=== PATIENT | female | born 1990 | race Caucasian/White ===

== ENCOUNTER 2020-02-28 07:38 | Emergency (ER) | payer MEDICAID ==
[~2020-02-28] VITALS: Ht 167.6 cm; Wt 72.7 kg
[2020-02-28] MEDS ORDERED: naproxen 500mg tablet PO ONE (08:00)
[2020-02-28 08:26] LABS: BASOPHILS % (AUTO) 0.3 % (0-1); EOSINOPHILS # (AUTO) 0.1 X10'3 (0-0.9); EOSINOPHILS % (AUTO) 0.9 % (0-6); HEMATOCRIT 37.7 % (35.0-45.0); HEMOGLOBIN 12.6 g/dl (12.0-16.0); LYMPHOCYTES # (AUTO) 1.8 X10'3 (1.1-4.8); LYMPHOCYTES % (AUTO) 25.1 % (21-51); MEAN CORPUSCULAR HEMOGLOBIN 29.4 PG (27.0-31.0); MEAN CORPUSCULAR HGB CONC 33.5 g/dL (33.0-36.5); MEAN CORPUSCULAR VOLUME 87.8 FL (78-98); MEAN PLATELET VOLUME 7.4 FL (7.4-10.4); MONOCYTES # (AUTO) 0.5 X10'3 (0-0.9); MONOCYTES % (AUTO) 7.5 % (2-12); NEUTROPHILS # (AUTO) 4.8 X10'3 (1.8-7.7); NEUTROPHILS % (AUTO) 66.2 % (42-75); PLATELET COUNT 365 X10'3 (140-440); RED BLOOD COUNT 4.29 X10'6 (4.20-5.60); RED CELL DISTRIBUTION WIDTH 13.8 % (11.5-14.5); WHITE BLOOD COUNT 7.2 X10'3 (4.5-11.0)
[2020-02-28 08:42] LABS: ALBUMIN 3.7 G/DL (3.4-5.0); ANION GAP 7 (8-16); BLOOD UREA NITROGEN 11 MG/DL (7-18); BUN/CREATININE RATIO 13.8 (6.6-38.0); CALCIUM 9.5 MG/DL (8.5-10.1); CHLORIDE 108 MMOL/L (99-107); GLUCOSE 84 MG/DL (70-104); POTASSIUM 3.8 MMOL/L (3.5-5.1); SODIUM 141 MMOL/L (135-145); TOTAL CARBON DIOXIDE 26.2 MMOL/L (24-32); TROPONIN I < 0.04 NG/ML (0.0-0.05); eGFR 84 ML/MIN
[2020-02-28 09:29] VITALS: BP 96/60
== END 2020-02-28 09:31 | disposition home or self-care (01) ==
LOC: ER 07:38
DX: R07.89 Other chest pain (principal); R11.0 Nausea; R53.1 Weakness; G43.909 Migraine, unspecified, not intractable, without status migrainosus; F41.9 Anxiety disorder, unspecified; F32.9 Major depressive disorder, single episode, unspecified; F17.200 Nicotine dependence, unspecified, uncomplicated; F12.90 Cannabis use, unspecified, uncomplicated; Z88.2 Allergy status to sulfonamides; Z88.8 Allergy status to other drugs, medicaments and biological substances
CPT/HCPCS: 36415; 71045; 80048; 84484; 85025; 93005; 99285

== ENCOUNTER 2021-11-11 22:49 | Emergency (ER) | payer MEDICAID ==
[~2021-11-11] VITALS: Ht 167.6 cm; Wt 72.7 kg
[2021-11-11] MEDS ORDERED: normal saline 1000ML IV soln IVB ONE (23:05)
[2021-11-11] MEDS ORDERED: proCHLORperazine 10 MG/2 ml inj IV ONE (23:05)
--- NOTE | 2021-11-11 23:07 | NUR ---
ULTRA SOUND PAGED AT [id number]
[2021-11-11 23:23] LABS: URINE HCG NEGATIVE (NEG)
[2021-11-11 23:25] LABS: CLARITY,URINE CLEAR (Clear); GLUCOSE, URINE NEGATIVE (Neg); KETONES,URINE NEGATIVE (Neg); LEUKOCYTE ESTERASE ,URINE NEGATIVE (Neg); NITRITES, URINE NEGATIVE (Neg); OCCULT BLOOD,URINE NEGATIVE (Neg); PROTEIN,URINE NEGATIVE (Neg); UROBILINOGEN,URINE 0.2 E.U/dL (0.2-1.0)
[2021-11-11 23:25] LABS: BASOPHILS % (AUTO) 0.4 % (0-1); EOSINOPHILS # (AUTO) 0.2 X10'3 (0-0.9); EOSINOPHILS % (AUTO) 1.4 % (0-6); HEMATOCRIT 35.3 % (35.0-45.0); LYMPHOCYTES # (AUTO) 3.2 X10'3 (1.1-4.8); LYMPHOCYTES % (AUTO) 25.4 % (21-51); MEAN CORPUSCULAR HEMOGLOBIN 29.9 PG (27.0-31.0); MEAN CORPUSCULAR HGB CONC 34.1 g/dL (33.0-36.5); MEAN CORPUSCULAR VOLUME 87.9 FL (78-98); MONOCYTES # (AUTO) 0.9 X10'3 (0-0.9); MONOCYTES % (AUTO) 7.4 % (2-12); NEUTROPHILS # (AUTO) 8.2 X10'3 (1.8-7.7); NEUTROPHILS % (AUTO) 65.4 % (42-75); PLATELET COUNT 405 X10'3 (140-440); RED BLOOD COUNT 4.01 X10'6 (4.20-5.60); RED CELL DISTRIBUTION WIDTH 14.6 % (11.5-14.5); WHITE BLOOD COUNT 12.5 X10'3 (4.5-11.0)
[2021-11-11 23:26] LABS: COLOR,URINE Straw (Yellow); UA COLLECTION TYPE CLN CATCH MIDSTREAM
[2021-11-11 23:29] LABS: URINE AMPHETAMINE SCREEN NEGATIVE (Neg); URINE BARBITUATE SCREEN NEGATIVE (Neg); URINE BENZODIAZEPINES SCREEN NEGATIVE (Neg); URINE CANNABINOID SCREEN NEGATIVE (Neg); URINE COCAINE SCREEN NEGATIVE (Neg); URINE METHADONE SCREEN NEGATIVE (Neg); URINE OPIATE SCREEN NEGATIVE (Neg); URINE PHENCYCLIDINE SCREEN NEGATIVE (Neg)
[2021-11-11] MEDS ORDERED: LORazepam 2 mg/ml vial IV ONE (23:35)
[2021-11-11 23:42] LABS: ALANINE AMINOTRANSFERASE 27 U/L (12-78); ALBUMIN 3.6 G/DL (3.4-5.0); ALKALINE PHOSPHATASE 56 IU/L (46-116); ANION GAP 11 (8-16); ASPARTATE AMINO TRANSFERASE 15 U/L (10-37); BILIRUBIN,TOTAL 0.2 MG/DL (0.1-1.0); BLOOD UREA NITROGEN 10 MG/DL (7-18); BUN/CREATININE RATIO 11.5 (6.6-38.0); CALCIUM 8.6 MG/DL (8.5-10.1); CHLORIDE 105 MMOL/L (99-107); CREATININE 0.87 MG/DL (0.40-0.90); GLUCOSE 101 MG/DL (70-104); LIPASE 107 U/L (73-393); POTASSIUM 3.5 MMOL/L (3.5-5.1); SODIUM 139 MMOL/L (135-145); TOTAL CARBON DIOXIDE 23.4 MMOL/L (24-32); TOTAL PROTEIN 7.3 G/DL (6.4-8.2); eGFR 75 ML/MIN
[2021-11-11 23:52] VITALS: BP 109/70
== END 2021-11-11 23:55 | disposition left against medical advice (07) ==
LOC: ER 22:50
DX: R10.32 Left lower quadrant pain (principal); R11.2 Nausea with vomiting, unspecified; G43.909 Migraine, unspecified, not intractable, without status migrainosus; F31.9 Bipolar disorder, unspecified; Z88.2 Allergy status to sulfonamides; Z79.899 Other long term (current) drug therapy
CPT/HCPCS: 76856; 80053; 80305; 81003; 81025; 83690; 85025; 93976; 96374; 99284; J0780; J7030; 99283

== ENCOUNTER 2024-08-25 22:04 | Emergency (ER) | payer MEDICAID ==
[~2024-08-25 22:04] MED LIST: IBUP-1986 PO
--- NOTE | 2024-08-25 22:14 | Physician Documentation ---
History of Present Illness ~ Chief Complaint: Seizure Stated Complaint: SILENT SZ Time Seen by MD: 00:12 OK to notify your PCP?: Yes Primary Medical Doctor: psychiatric Source: patient Mode of Arrival: POV Exam Limitations: no limitations HPI 33-year-old female presents from home with possible seizures. She states that she has had for in the past 40 minutes prior to arrival which were witnessed by her kids and dad. She says during the episode she is unable to see or hear anything. While she denies any loss of bowel or bladder or biting her tongue. She is not sure how long they last and she is able to recall the event. No history of seizure disorder or taking any seizure medications. Additional note by Tha Mead DO: I took over the care of this patient from previous physician. I reviewed any previous notes available, obtain my own history, review of systems and physical examination was performed by myself. This is a 33-year-old female with no significant past medical history presents for evaluation of multiple episodes of transient alteration of awareness. She states that she gets prodrome of feeling confused. This is followed by the episode where she is focused on one particular object, and can not seem to look away, and becomes oblivious to the rest of the world that she describes it as I can not see nothing I can not hear nothing. She actually denies blindness or actual deafness at the time. She does not know how long the episodes last but she is awake for entire duration and self aware. It has been witnessed by her and children but she denies any seizure-like activity at the time. No urinary continence, no lateral tongue biting reported with the patient. This has been going on for a month and a half. She had seen PCP and has been referred to Neurology and MRI. No particular palliating or aggravating factors for these events. Did not attempt to treat the. No history of seizure disorder, does not take any medication. Denies any drug use or alcohol use. She came in today because she had four of these episodes in the span of 40 minutes and that made her to feel concerned. Denies any other symptoms. Medication Reconciliation Allergies: Coded Allergies: Sulfa (Sulfonamide Antibiotics) (Verified Allergy, Unknown, 08/25/24) ketorolac (Verified Allergy, Unknown, ANGRY, VIOLENT, 08/25/24) prednisone (Verified Allergy, Unknown, 08/25/24) tramadol (Verified Allergy, Unknown, 08/25/24) Scheduled Ibuprofen (Ibuprofen), 1 TAB PO Q8H Past Medical History Past Medical History: Migraine, Inflammatory Bowel Dz, *RENAL/*, Cervical Cancer/Dysplasia, Anxiety, Depression Past Surgical History: cancer surgery Alcohol Use: None Drug Use: marijuana Lives In: Home Review of Systems ROS 10 point review of systems was performed and unless noted above in HPI is negative for acute process/complaint. Physical Exam Vital Signs: Temperature: 97.6, Source: Temporal, Heart Rate: 91, Respiratory Rate: 15, BP: 118/82, Pulse Oximetry: 99 Physical Exam Physical examination: GENERAL: Awake, alert, oriented, GCS 15, no apparent distress, non-toxic appearing, answers questions, follows commands appropriately. HEENT: Atraumatic, normocephalic, pupils equal, extraocular muscles intact Active gross movements, sclerae anicteric, mucus membranes moist, no stridor. NECK: Midline, no JVD CARDIOVASCULAR: Good skin perfusion without evidence of pallor, mottling. PULMONARY: Nonlabored, symmetric chest rise, no audible wheezing, no accessory muscle use, no respiratory distress, speaking in full sentences. GASTROINTESTINAL: Not distended. NEUROLOGIC: Lucid with normal mental status. Normal facial symmetry. Moves all extremities symmetrically and with purpose. No truncal ataxia. Speech is fluid without evidence of dysarthria or aphasia, no focal deficits appreciated. EXTREMITIES: Acute deformities Skin: warm, dry PSYCHIATRIC: Normal affect, normal insight, normal concentration. Focused exam: [] Progress Results/Orders Results/Orders Orders - THA MEAD DO Urinalysis, Cult If Indicated (08/25/24 22:57) Ct Head (08/25/24 23:00) Drug Screen, Urine (08/25/24 22:57) Completed Orders - THA MEAD DO Electrocardiogram (08/25/24 22:57) Cbc/Diff (08/25/24 22:57) MG (08/25/24 22:57) Ct Head (08/25/24 23:00) Hs Troponin I W Calculations (08/25/24 22:57) CMP (08/25/24 22:57) Ethanol (08/25/24 22:57) Hcg Serum Ql (08/25/24 22:57) Vital Signs 08/25/24 08/26/24 08/26/24 22:09 00:08 00:16 Temp 97.6 97.6 Pulse 91 64 Resp 15 16 16 B/P (MAP) 118/82 101/58 (72) Pulse Ox 99 100 O2 Flow Rate 0 Laboratory Tests Test 08/25/24 23:08 White Blood Count 10.5 Red Blood Count 4.02 L Hemoglobin 12.1 Hematocrit 36.3 Mean Corpuscular Volume 90.2 Mean Corpuscular Hemoglobin 30.0 Mean Corpuscular Hemoglobin Concent 33.2 Red Cell Distribution Width 13.1 Platelet Count 408 Mean Platelet Volume 7.3 L Neutrophils (%) (Auto) 56.3 Lymphocytes (%) (Auto) 31.3 Monocytes (%) (Auto) 7.8 Eosinophils (%) (Auto) 4.1 Basophils (%) (Auto) 0.5 Neutrophils # (Auto) 5.9 Lymphocytes # (Auto) 3.3 Monocytes # (Auto) 0.8 Eosinophils # (Auto) 0.4 Basophils # (Auto) 0.1 CBC Comment Sodium Level 141 Potassium Level 3.6 Chloride Level 105 Carbon Dioxide Level 30.2 Anion Gap 6 L Blood Urea Nitrogen 11 Creatinine 0.87 Estimated GFR/1.73 m2 74 BUN/Creatinine Ratio 12.6 Glucose Level 70 Calcium Level 8.5 Magnesium Level 2.1 Total Bilirubin 0.2 Aspartate Amino Transf (AST/SGOT) 14 Alanine Aminotransferase (ALT/SGPT) 17 Alkaline Phosphatase 74 Troponin I High Sensitivity 4 Total Protein 7.2 Albumin 3.5 Globulin 3.7 Albumin/Globulin Ratio 0.9 L Human Chorionic Gonadotropin, Qual Negative Chemistry Comments Ethyl Alcohol Level < 10 Medical Decision Making Findings Facility Status: ED Holds, [facility] process The plan was discussed with the patient, who demonstrates clear understanding of the plan and is in agreement with the plan unless otherwise noted in the chart. All questions have been answered, all concerns were addressed unless otherwise documented. I was available throughout their ED stay for frequent reassessment and questions. Differential Diagnoses (considered and possible or likely): [Psychogenic nonepileptic seizure-like activity, less likely actual seizures, less likely narcolepsy, starting episodes are also in differential diagnosis. I do not suspect drug use or alcohol use. Less likely MS] Less likely to represent intracranial tumor ??Differential Diagnoses (considered and unlikely, not requiring evaluation currently): [No evidence of lateralizing signs to suspect a stroke] MDM Data Please see HPI for the following: Independent Historians and external Records Review. Historian: [Patient] Independent Historians: ?[None] Medication Management: [Reviewed medication list] Social History and determinants: [Reviewed] Please see the body of the note for the following: Any independent interpretations of ECG, imaging studies. All vitals signs/haemodynamics, ordered tests were independently reviewed and interpreted by myself. Nursing triage complaint and vitals reviewed, additional nursing notes were reviewed as available and I agree unless otherwise noted or documented in contradiction in the chart Vital Signs: Independently reviewed Labs: Independently interpreted Imaging: Independently interpreted Old Medical Records: Independently reviewed, see HPI for relevant summary and information Pulse Oximetry: [99%] interpreted as [normal on room air] by me Additionally notably showing: [Hemodynamically stable. Unremarkable laboratory workup and imaging.] Tests considered but not ordered include: [UA has been ordered and considerably the patient has not been able to provide urine than 4 hours] Social Determinants of Health Impact: Patient was evaluated in [facility] [place] to healthcare due to below par ratio of patient to medical providers. [] Comorbid Conditions Impacting Present Evaluation and Care/Treatment: [None reported] Management Discussions with other Healthcare Providers: [Known, already has a referral to Neurology] Treatment and Disposition Medication Management (Given or considered): []. See EMR for details Consideration for Hospitalization/Escalation/Deescalation of Care: Admission for observation has been considered, [however the patient is able to tolerate p.o., their symptoms are controlled, they are able to rely on oral medications, and their chief complaint/diagnosis can be managed on outpatient basis.] ?ED Course:?[No clinical deterioration, no recurrence of the episodes] ?Shared decision making:?[Patient is hemodynamically stable for discharge home with follow with their primary care provider. [ ] Specific and cautious return precautions provided and discussed with full understanding. Any incidental findings were also discussed and follow up recommendations given. [] All questions answered. Patient/family were able to verbalize back return precautions. Patient/family agree to plan. Copies of imaging and laboratory studies were provided.] Code status:?FULL Please see the full Electronic Medical Record for full details of nursing documentation, medications list, other records of complete past medical history and conditions, vital signs, laboratory studies, and any radiologic study interpretations by radiologists. Portions of this note were completed using [employer] dictation software and as a result there may exist minor errors in spelling. I have reviewed elements of past family and social history and agree as included in note. Departure Disposition: HOME / SELF CARE / HOMELESS Impression: Primary Impression: Transient alteration of awareness Condition: Improved Discharge Instructions: Confusion Additional Instructions: There is no clear explanation for your episodes. There does not appear to be an emergent cause that is life-threatening. Follow-up with the neurology referral and obtain your MRI. Referrals: NO PRIMARY CARE PROVIDER (PCP) Education Educated: Patient Educated regarding: diagnosis, treatment, prognosis, need for follow up Additional Comment Medical Screen Exam Scribed for Emergency,Department by Hilaria Ulloa - KATIA . 08/25/24 22:14 Signature Scribe Signature: No scribe Attestation: This note accurately reflects clinical decisions, work performed by myself, DO TIFF Beltran ASHLEY D [facility] Aug 25, 2024 22:14 THA MEAD DO Aug 26, 2024 01:27
--- NOTE | 2024-08-25 23:14 | ELECTROCARDIOGRAPH REPORT ---
[facility] Test Date: 2024-08-25 Test Time: 23:10:51 Pat Name: JOAQUÍN THOMAS Department: EMERGENCY ROOM Room: Gender: F Yarn Sizer: MIGUEL : 1990 Requested By: FABIEN MEAD Order Number: [id number] Reading MD: Measurements Intervals [place] Rate: 67 P: 52 IN: 174 QRS: 71 QRSD: 94 T: 51 QT: 400 QTc: 423 Interpretive Statements Sinus rhythm Low voltage, precordial leads Please click the below link to view image of tracing.
[2024-08-25 23:18] LABS: BASOPHILS # (AUTO) 0.1 X10'3 (0-0.2); BASOPHILS % (AUTO) 0.5 % (0-1); EOSINOPHILS # (AUTO) 0.4 X10'3 (0-0.9); EOSINOPHILS % (AUTO) 4.1 % (0-6); HEMATOCRIT 36.3 % (35.0-45.0); HEMOGLOBIN 12.1 g/dl (12.0-16.0); LYMPHOCYTES # (AUTO) 3.3 X10'3 (1.1-4.8); LYMPHOCYTES % (AUTO) 31.3 % (21-51); MEAN CORPUSCULAR HGB CONC 33.2 g/dL (33.0-36.5); MEAN CORPUSCULAR VOLUME 90.2 FL (78-98); MEAN PLATELET VOLUME 7.3 FL (7.4-10.4); MONOCYTES # (AUTO) 0.8 X10'3 (0-0.9); MONOCYTES % (AUTO) 7.8 % (2-12); NEUTROPHILS # (AUTO) 5.9 X10'3 (1.8-7.7); NEUTROPHILS % (AUTO) 56.3 % (42-75); PLATELET COUNT 408 X10'3 (140-440); RED BLOOD COUNT 4.02 X10'6 (4.20-5.60); RED CELL DISTRIBUTION WIDTH 13.1 % (11.5-14.5); WHITE BLOOD COUNT 10.5 X10'3 (4.5-11.0)
[2024-08-25 23:31] LABS: ALANINE AMINOTRANSFERASE 17 U/L (12-78); ALBUMIN 3.5 G/DL (3.4-5.0); ALBUMIN/GLOBULIN RATIO 0.9 (1.1-1.5); ALKALINE PHOSPHATASE 74 IU/L (46-116); ANION GAP 6 (8-16); ASPARTATE AMINO TRANSFERASE 14 U/L (10-37); BILIRUBIN,TOTAL 0.2 MG/DL (0.1-1.0); BLOOD UREA NITROGEN 11 MG/DL (7-18); BUN/CREATININE RATIO 12.6 (10.0-20.0); CALCIUM 8.5 MG/DL (8.5-10.1); CHLORIDE 105 MMOL/L (99-107); CREATININE 0.87 MG/DL (0.40-0.90); GLUCOSE 70 MG/DL (70-104); MAGNESIUM 2.1 MG/DL (1.5-2.4); POTASSIUM 3.6 MMOL/L (3.5-5.1); SODIUM 141 MMOL/L (135-145); TOTAL CARBON DIOXIDE 30.2 MMOL/L (24-32); TOTAL PROTEIN 7.2 G/DL (6.4-8.2); eGFR 74 ML/MIN
[2024-08-25 23:32] LABS: ETHANOL < 10 MG/DL (<10)
[2024-08-25 23:37] LABS: HCG SERUM QL NEGATIVE
--- NOTE | 2024-08-25 23:37 | RADIOLOGY REPORT ---
EXAM: CT CT HEAD INDICATION: Transient alteration of consciousness TECHNIQUE: CT of the head without intravenous contrast. Radiation Dose : 1. Head: CT Dose: CTDI volume is 61 mGy. Dose-length product is 1111 mGy*cm The dose indicators for CT are the volume Computed Tomography (CT) Dose Index (CTDIvol) and the Dose Length Product (DLP), and are measured in units of mGy and mGy-cm, respectively. These indicators are not patient dose, but values generated from the CT scanner acquisition factors. The report includes radiation exposure data for exposures received during this examination. COMPARISON: None FINDINGS: There is no evidence of acute intracranial hemorrhage, extra-axial collection, mass effect, midline s hift, herniation or hydrocephalus. The ventricles, sulci and cisterns are age appropriate. The wu-white differentiation is intact. Patchy periventricular and subcortical white matter hypoattenuation is nonspecific but may be related to small vessel ischemic disease. The visualized paranasal sinuses and mastoid air cells are clear. The surrounding soft tissues and osseous structures are unremarkable. IMPRESSION: No acute intracranial abnormality.
[2024-08-26 00:16] VITALS: TEMP 97.6
[2024-08-26 01:51] VITALS: BP 102/66; PULSE 61; RESP 14; O2SAT 99
== END 2024-08-26 01:55 | disposition home or self-care (01) ==
LOC: ER 22:05
DX: R40.4 Transient alteration of awareness (principal); G43.909 Migraine, unspecified, not intractable, without status migrainosus; F41.9 Anxiety disorder, unspecified; F32.A Depression, unspecified; F12.90 Cannabis use, unspecified, uncomplicated; Z85.41 Personal history of malignant neoplasm of cervix uteri; Z88.2 Allergy status to sulfonamides; Z88.5 Allergy status to narcotic agent; Z88.8 Allergy status to other drugs, medicaments and biological substances; Z79.899 Other long term (current) drug therapy
CPT/HCPCS: 36415; 70450; 80053; 80320; 83735; 84484; 84703; 85025; 93005; 99284